=== PATIENT | female | born 1990 | race Caucasian/White ===

== ENCOUNTER 2021-12-17 00:22 | Outpatient (CLI) | payer OTHER ==
[2021-12-17] MEDS ORDERED: LACTATED RINGERS 1,000 ML ONE (03:04)
[2021-12-17] MEDS ORDERED: MORPHINE 4 MG/1 ML INJ IV ONE (03:17)
[2021-12-17 05:10] VITALS: BP 102/59
== END 2021-12-17 06:57 | disposition home or self-care (01) ==
LOC: TRG 00:22 → APU 00:42 → TRG 06:57
PROVIDERS: ATTEND Obstetrics & Gynecology
DX: O46.93 Antepartum hemorrhage, unspecified, third trimester (principal); O26.893 Other specified pregnancy related conditions, third trimester; R10.9 Unspecified abdominal pain; O24.419 Gestational diabetes mellitus in pregnancy, unspecified control; Z3A.37 37 weeks gestation of pregnancy
CPT/HCPCS: 96361; 96374; J2270; J7120